=== PATIENT | male | born 1960 | race Caucasian/White ===

== ENCOUNTER 2016-09-27 15:14 | Inpatient (IN) | payer OTHER ==
[2016-09-27 16:05] VITALS: BMI 23.4
--- NOTE | 2016-09-27 17:29 | HP ---
COWS - Scale Resting Pulse: 0= [place] 80 or Below Sweatin= Chills/Flushing Restless Observation: 1= Difficult to Sit Still Pupil Size: 0= Normal to Room Light Bone or Joint Aches: 2= Severe Diffuse Aches Runny Nose/ Eye Tearin= Runny Nose/Eyes GI Upset > 30mins: 2= Nausea/Diarrhea Tremor Observation: 1= Tremor [place], Not Seen Yawning Observation: 1= 1-2x During Session Anxiety or Irritability: 2=Irritable/Anxious Goose Flesh Skin: 3=Piloerection COWS Score: 15 Admission ROS S - HPI Chief Complaint: 56 years old male with long history of opiate nicotine dependence, has + PPD hepatitis c and anxiety depression is admitted to detox Allergies/Adverse Reactions: Allergies Allergy/AdvReac Type Severity Reaction Status Date / Time penicillin G Allergy Severe Difficulty Verified 06/22/16 14:34 Breathing History of Present Illness: withdrawal sx Exam Limitations: No Limitations - Ebola screening Have you traveled outside of the country in the last 21 days: No Have you had contact with anyone from an Ebola affected area: No Have you been sick,other than usual withdrawal symptoms: No Do you have a fever: No - Review of Systems Constitutional: Chills, Loss of Appetite, Changes in sleep, Unexplained wgt Loss EENT: reports: No Symptoms Reported Respiratory: reports: No Symptoms reported Cardiac: reports: No Symptoms Reported GI: reports: Diarrhea, Poor Appetite, Poor Fluid Intake, Abdominal cramping : reports: No Symptoms Reported Musculoskeletal: reports: Back Pain, Joint Pain, Muscle Pain, Neck Pain Integumentary: reports: No Symptoms Reported Neuro: reports: Tremors Endocrine: reports: No Symptoms Reported Hematology: reports: No Symptoms Reported Psychiatric: reports: Judgement Intact, Orientated x3, Anxious, Depressed Other Systems: Reviewed and Negative Patient History - Patient Medical History Hx Anemia: No Hx Asthma: No Hx Chronic Obstructive Pulmonary Disease (COPD): No Hx Cancer: No Hx Cardiac Disorders: No Hx Congestive Heart Failure: No Hx Hypertension: No Hx Hypercholesterolemia: No Hx Pacemaker: No HX Cerebrovascular Accident: No Hx Seizures: No Hx Dementia: No Hx Diabetes: No Hx Gastrointestinal Disorders: Yes (gastritis) Hx Liver Disease: No Hx Genitourinary Disorders: No Hx Sexually Transmitted Disorders: No Hx Renal Disease (ESRD): No Hx Thyroid Disease: No Hx Human Immunodeficiency Virus (HIV): No Hx Hepatitis C: Yes Hx Depression: Yes Hx Suicide Attempt: Yes (1997) Hx Bipolar Disorder: No Hx Schizophrenia: No - Patient Surgical History Past Surgical History: Yes Hx Neurologic Surgery: No Hx Cataract Extraction: No Hx Cardiac Surgery: No Hx Lung Surgery: No Hx Breast Surgery: No Hx Breast Biopsy: No Hx Abdominal Surgery: No Hx Appendectomy: No Hx Cholecystectomy: No Hx Genitourinary Surgery: No Hx Orthopedic Surgery: Yes (left wrist in 1985) Anesthesia Reaction: No - PPD History Previous Implant?: Yes Documented Results: Positive w/o proof Implanted On Prior [facility] Admission?: No PPD to be Administered?: No - Smoking Cessation Smoking history: Current every day smoker Have you smoked in the past 12 months: Yes Aproximately how many cigarettes per day: 10 Cigars Per Day: 0 Hx Chewing Tobacco Use: No Initiated information on smoking cessation: Yes 'Breaking Loose' booklet given: 09/27/16 - Substance & Tx. History Hx Alcohol Use: No Hx Substance Use: Yes Substance Use Type: Opiates Hx Substance Use Treatment: Yes - Substances Abused Heroin Route: Inhalation Frequency: Daily Amount used: 5 bags Age of first use: 31 Date of Last Use: 09/27/16 Family Disease History - Family Disease History Family Disease History: Diabetes: Daughter, [place]: Mother () Admission Physical Exam S - Vital Signs Vital Signs: Vital Signs - 24 hr 09/27/16 16:01 Temperature 97.5 F L Pulse Rate 53 L Respiratory 18 Rate Blood Pressure 122/74 - Physical General Appearance: Yes: Appropriately Dressed, Mild Distress, Thin, Tremorous, Irritable, Sweating, Anxious HEENTM: Yes: Hearing grossly Normal, Normal ENT Inspection, Normocephalic, Normal Voice Respiratory: Yes: Chest Non-Tender, Lungs Clear, Normal Breath Sounds, No Respiratory Distress, No Accessory Muscle Use Neck: Yes: Supple, Trachea in good position Breast: Yes: Breasts Symetrical Cardiology: Yes: Regular Rhythm, Regular Rate, S1, S2 Abdominal: Yes: Non Tender, Soft Genitourinary: Yes: Within Normal Limits Back: Yes: Normal Inspection Musculoskeletal: Yes: full range of Motion, Gait Steady, Back pain, Muscle Pain Extremities: Yes: Normal Inspection, Normal Range of Motion, Non-Tender, Tremors Neurological: Yes: Fully Oriented, Alert, Motor Strength 5/5, Normal Response, Depressed Affect Integumentary: Yes: Warm Lymphatic: Yes: Within Normal Limits - Diagnostic (1) Nicotine dependence Current Visit: Yes Status: Acute Qualifiers: Nicotine product type: cigarettes Substance use status: in withdrawal Qualified Code(s): F17.213 - Nicotine dependence, cigarettes, with withdrawal (2) Opioid dependence with withdrawal Current Visit: Yes Status: Acute (3) Hepatitis C antibody test positive Current Visit: Yes Status: Resolved (4) Weight loss Current Visit: Yes Status: Acute Comment: ensure (5) GERD (gastroesophageal reflux disease) Current Visit: Yes Status: Acute Qualifiers: Esophagitis presence: without esophagitis Qualified Code(s): K21.9 - Gastro-esophageal reflux disease without esophagitis Comment: zantac (6) Positive PPD, treated Current Visit: Yes Status: Resolved Comment: chest x ray pending (7) Sciatic leg pain Current Visit: Yes Status: Acute Comment: left leg lidocaine patch neurontin (8) Fracture subluxation of left wrist Current Visit: Yes Status: Resolved Qualifiers: Encounter type: sequela Qualified Code(s): S62.102S - Fracture of unspecified carpal bone, left wrist, sequela (9) Sprain of part of left shoulder girdle Current Visit: Yes Status: Resolved Qualifiers: Encounter type: sequela Qualified Code(s): S43.92XS - Sprain of unspecified parts of left shoulder girdle, sequela Cleared for Admission [facility] - Detox or Rehab [facility] Level of Care: Medically Managed Detox Regimen/Protocol: Methadone [facility] Breath Alcohol Content Breath Alcohol Content: 0 Urine Drug Screen - Results Drug Screen Negative: No Urine Drug Screen Results: OPI-Opiates
[2016-09-27] MEDS ORDERED: guaiFENesin/D-METHORPHAN HB 10 ML UNIT-DOSE CUPS PO PRN (17:36)
[2016-09-27] MEDS ORDERED: MENTHOL/PHENOL 1 EACH UD MM PRN (17:36)
[2016-09-27] MEDS ORDERED: NICOTINE POLACRILEX 2 MG GUM BUC PRN (17:36)
[2016-09-27] MEDS ORDERED: MAGNESIUM CITRATE 300 ML BOTTLE PO PRN (17:36)
[2016-09-27] MEDS ORDERED: MAGNESIUM HYDROX 2400MG/30ML ORAL SUSPENSION 30 ML CUP PO PRN (17:36)
[2016-09-27] MEDS ORDERED: P-EPHED 60MG/TRIPROLIDI 2.5MG TABLET PO PRN (17:36)
[2016-09-27] MEDS ORDERED: LOPERAMIDE HCL 2 MG CAPSULE PO PRN (17:36)
[2016-09-27] MEDS ORDERED: MAG HYDROX/AL HYDROX/SIMETH 30 ML UNIT-DOSE CUP PO PRN (17:36)
[2016-09-27] MEDS ORDERED: METHADONE HCL 10 MG TABLET (FOR DETOX USE ONLY) PO ONE ×2 (19:00→23:00)
[2016-09-27] MEDS ORDERED: diphenhydrAMINE HCL 50 MG CAPSULE PO PRN (22:00)
[2016-09-27] MEDS: CYCLOBENZAPRINE HCL 10 MG TABLET (FP) PO SCH (22:23)
[2016-09-27] MEDS: THIAMINE HCL 100 MG TABLET (FP) PO SCH (22:23)
[2016-09-27] MEDS: RANITIDINE HCL 150 MG TABLET (FP) PO SCH (22:23)
[2016-09-27] MEDS: diazePAM 5 MG TABLET PO PRN (22:23)
[2016-09-27] MEDS: GABAPENTIN 300 MG CAPSULE (FP) PO SCH (22:23)
[2016-09-27 22:51] LABS: URINE APPEARANCE CLEAR; URINE BILIRUBIN NEGATIVE (NEGATIVE); URINE BLOOD NEGATIVE (NEGATIVE); URINE COLOR YELLOW; URINE GLUCOSE (UA) NEGATIVE (NEGATIVE); URINE KETONE NEGATIVE (NEGATIVE); URINE LEUK ESTERASE NEGATIVE (NEGATIVE); URINE NITRITE NEGATIVE (NEGATIVE); URINE PROTEIN NEGATIVE (NEGATIVE); URINE UROBILINOGEN 4.0 E.U/dl E.U./dl (0.2-1.0)
[2016-09-28] MEDS: CYCLOBENZAPRINE HCL 10 MG TABLET (FP) PO SCH ×3 (05:52→22:08)
--- NOTE | 2016-09-28 08:05 | CONSULT ---
[facility] Psychiatric Consult - Data Date of interview: 09/28/16 Admission source: [facility] Identifying data: This is 56 years old male with no mpsychiatric hospitalization history intoxicated with: Heroin, Cocaine, Benzodiazepins, Nicotine Substance Abuse History: - Smoking Cessation. Smoking history: Current every day smoker. Have you smoked in the past 12 months: Yes. Aproximately how many cigarettes per day: 10. Cigars Per Day: 0. Hx Chewing Tobacco Use: No. Initiated information on smoking cessation: Yes. 'Breaking Loose' booklet given : 09/27/16. - Substance & Tx. History. Hx Alcohol Use: No. Hx Substance Use: Yes. Substance Use Type: Opiates. Hx Substance Use Treatment: Yes. - Substances Abused. Heroin. Route: Inhalation. Frequency: Daily. Amount used: 5 bags. Age of first use: 31. Date of Last Use: 09/27/16 Medical History: GERD, Sciatica, Weight loss, HepC+, PPD positive history Psychiatric History: Patient reports history of anxiety and insomnia, reports taking prior to admission: Trazodone 50mg po qhs. Gabapentin 600mg po bid Physical/Sexual Abuse/Trauma History: Denies Additional Comment: Trazodone 50mg po qhs. Gabapentin 600mg po bid Mental Status Exam - Mental Status Exam Alert and Oriented to: Person Cognitive Function: Fair Patient Appearance: Unkempt Mood: Sad Affect: Flat Patient Behavior: Sedated Speech Pattern: Delayed Voice Loudness: Mildly Soft/Quiet Thought Process: Goal Oriented Thought Disorder: Being Controlled Hallucinations: Denies Suicidal Ideation: Denies Homicidal Ideation: Denies Insight/Judgement: Fair Sleep: Difficulty falling asleep Appetite: Weight loss Muscle strength/Tone: Mild Hypotonicity Gait/Station: Shuffling Additional Comments: Trazodone 50mg po qhs. Gabapentin 600mg po bid Psychiatric Findings - Problem List ([place] 1, 2,3) (1) Nicotine dependence Current Visit: Yes Status: Acute Qualifiers: Nicotine product type: cigarettes Substance use status: in withdrawal Qualified Code(s): F17.213 - Nicotine dependence, cigarettes, with withdrawal (2) Opioid dependence with withdrawal Current Visit: Yes Status: Acute (3) Weight loss Current Visit: Yes Status: Acute Comment: ensure (4) Benzodiazepine abuse Current Visit: No Status: Acute (5) Substance-induced sleep disorder Current Visit: No Status: Acute (6) Benzodiazepine dependence Current Visit: No Status: Chronic (7) Cocaine dependence Current Visit: No Status: Chronic Qualifiers: Substance use status: uncomplicated Qualified Code(s): F14.20 - Cocaine dependence, uncomplicated (8) Opioid dependence Current Visit: No Status: Chronic Qualifiers: Substance use status: uncomplicated Qualified Code(s): F11.20 - Opioid dependence, uncomplicated - Initial Treatment Plan Initial Treatment Plan: Trazodone 50mg po qhs. Gabapentin 600mg po bid
[2016-09-28] MEDS ORDERED: METHADONE HCL 10 MG TABLET (FOR DETOX USE ONLY) PO ONE (10:00)
[2016-09-28 10:14] LABS: MCH 31.5 pg (25.7-33.7); MCHC 33.1 g/dl (32.0-35.9); MEAN CELL VOLUME 95.3 fl (80-96); MEAN PLT VOLUME 8.5 fl (7.5-11.1); PLATELET COUNT 243 K/MM3 (134-434); RDW 14.3 % (11.9-15.9); WHITE BLOOD COUNT 9.1 K/mm3 (4.0-10.0)
[2016-09-28 10:20] LABS: ALBUMIN 3.4 g/dl (3.4-5.0); ANION GAP 6 (8-16); CALCIUM 9.5 mg/dL (8.5-10.1); CO2 29 mmol/L (21-32); GLUCOSE,RANDOM 98 mg/dL (74-106); SGPT/ALT 59 U/L (12-78)
[2016-09-28 10:21] LABS: ALK PHOS 80 U/L (45-117); BILIRUBIN,TOTAL 0.3 mg/dL (0.2-1.0); CREATININE 0.7 mg/dL (0.7-1.3); SGOT/AST 39 U/L (15-37); TOT PROT 6.5 g/dl (6.4-8.2)
[2016-09-28] MEDS: NICOTINE 14 MG/24 HOURS TOPICAL PATCH TD SCH (10:28)
[2016-09-28] MEDS: diazePAM 5 MG TABLET PO PRN ×2 (10:29→22:09)
[2016-09-28] MEDS: GABAPENTIN 300 MG CAPSULE (FP) PO SCH ×2 (10:29→22:09)
[2016-09-28] MEDS: RANITIDINE HCL 150 MG TABLET (FP) PO SCH ×2 (10:29→22:08)
[2016-09-28] MEDS: PRENATAL VITAMINS W/ FOLIC ACID TABLET (FP) PO SCH (10:29)
[2016-09-28 11:20] LABS: HIV 1 & 2 AB NEGATIVE; HIV 1 AGp24 NEGATIVE
--- NOTE | 2016-09-28 11:37 | PN ---
S COWS - Scale Resting Pulse: 1= [place] 81-100 Sweatin= Chills/Flushing Restless Observation: 1= Difficult to Sit Still Pupil Size: 0= Normal to Room Light Bone or Joint Aches: 2= Severe Diffuse Aches Runny Nose/ Eye Tearin= None GI Upset > 30mins: 3= Vomiting/Diarrhea Tremor Observation of Outstretched Hands: 2= Slight Tremor Visible Yawning Observation: 0= None Anxiety or Irritability: 1=Feels Anxious/Irritable Goose Flesh Skin: 3=Piloerection COWS Score: 14 [facility] Progress Note (SOAP) Subjective: Tremors, Interrupted sleep, Vomiting, Abdominal Cramping, Constipation, Body Aches. Objective: 09/28/16 11:35 Vital Signs Temperature 95.5 F L 09/28/16 09:35 Pulse Rate 96 H 09/28/16 09:35 Respiratory Rate 16 09/28/16 09:35 Blood Pressure 133/74 09/28/16 09:35 O2 Sat by Pulse Oximetry (%) Laboratory Last Values WBC 9.1 K/mm3 (4.0-10.0) 09/28/16 06:45 RBC 4.53 M/mm3 (4.00-5.60) 09/28/16 06:45 Hgb 14.3 GM/dL (11.7-16.9) 09/28/16 06:45 Hct 43.1 % (35.4-49) 09/28/16 06:45 MCV 95.3 fl (80-96) 09/28/16 06:45 MCHC 33.1 g/dl (32.0-35.9) 09/28/16 06:45 RDW 14.3 % (11.9-15.9) 09/28/16 06:45 Plt Count 243 K/MM3 (134-434) 09/28/16 06:45 MPV 8.5 fl (7.5-11.1) 09/28/16 06:45 Sodium 144 mmol/L (136-145) 09/28/16 06:45 Potassium 4.2 mmol/L (3.5-5.1) 09/28/16 06:45 Chloride 109 mmol/L (98-107) H 09/28/16 06:45 Carbon Dioxide 29 mmol/L (21-32) 09/28/16 06:45 Anion Gap 6 (8-16) L 09/28/16 06:45 BUN 18 mg/dL (7-18) D 09/28/16 06:45 Creatinine 0.7 mg/dL (0.7-1.3) 09/28/16 06:45 Creat Clearance w eGFR > 60 (>60) 09/28/16 06:45 Random Glucose 98 mg/dL (74-106) 09/28/16 06:45 Calcium 9.5 mg/dL (8.5-10.1) 09/28/16 06:45 Total Bilirubin 0.3 mg/dL (0.2-1.0) D 09/28/16 06:45 AST 39 U/L (15-37) H 09/28/16 06:45 ALT 59 U/L (12-78) 09/28/16 06:45 Alkaline Phosphatase 80 U/L (45-117) 09/28/16 06:45 Total Protein 6.5 g/dl (6.4-8.2) 09/28/16 06:45 Albumin 3.4 g/dl (3.4-5.0) 09/28/16 06:45 Urine Color Yellow 09/27/16 22:40 Urine Appearance Clear 09/27/16 22:40 Urine pH 6.0 (5.0-8.0) 09/27/16 22:40 Ur Specific [place] 1.025 (1.001-1.035) 09/27/16 22:40 Urine Protein Negative (NEGATIVE) 09/27/16 22:40 Urine Glucose (UA) Negative (NEGATIVE) 09/27/16 22:40 Urine Ketones Negative (NEGATIVE) 09/27/16 22:40 Urine Blood Negative (NEGATIVE) 09/27/16 22:40 Urine Nitrite Negative (NEGATIVE) 09/27/16 22:40 Urine Bilirubin Negative (NEGATIVE) 09/27/16 22:40 Urine Urobilinogen 4.0 e.u/dl E.U./dl (0.2-1.0) 09/27/16 22:40 Ur Leukocyte Esterase Negative (NEGATIVE) 09/27/16 22:40 RPR Titer Nonreactive (NONREACTIVE) 09/28/16 06:45 HIV 1&2 Antibody Screen Negative 09/28/16 06:45 HIV P24 Antigen Negative 09/28/16 06:45 LABS NOTED. Assessment: 09/28/16 11:36 WITHDRAWAL SYMPTOMS. Plan: CONTINUE DETOX. INCREASE PO FLUIDS. PRN MILK OF MAGNESIA FOR CONSTIPATION.
[2016-09-28] MEDS ORDERED: INFLUENZA VACCINE 45 MCG/0.5 ML (MDV 16-17) IM ONE (12:00)
[2016-09-28] MEDS: LIDOCAINE 5% TOPICAL PATCH TP SCH (13:31)
--- NOTE | 2016-09-28 17:36 | EKG ---
Test Reason : Blood Pressure : / mmHG Vent. Rate : 051 BPM Atrial Rate : 051 BPM P-R Int : 156 ms QRS Dur : 082 ms QT Int : 440 ms P-R-T Axes : 053 034 032 degrees QTc Int : 405 ms SINUS BRADYCARDIA POSSIBLE LEFT ATRIAL ENLARGEMENT BORDERLINE ECG NO PREVIOUS ECGS AVAILABLE Confirmed by MIGUELITO NINA MD ([id number]) on 09/28/2016 5:36:08 PM Referred By: Bruce Myers Confirmed By:MIGUELITO NINA MD
[2016-09-28] MEDS: THIAMINE HCL 100 MG TABLET (FP) PO SCH (22:08)
[2016-09-28] MEDS: traZODone HCL 50 MG TABLET (FP) PO SCH (22:08)
[2016-09-29] MEDS: CYCLOBENZAPRINE HCL 10 MG TABLET (FP) PO SCH ×3 (05:40→22:08)
[2016-09-29] MEDS: diazePAM 5 MG TABLET PO PRN ×3 (05:42→22:07)
--- NOTE | 2016-09-29 09:43 | PN ---
S COWS - Scale Resting Pulse: 0= [place] 80 or Below Sweatin=Flushed/Facial Moisture Restless Observation: 1= Difficult to Sit Still Pupil Size: 2= Moderately Dilated Bone or Joint Aches: 2= Severe Diffuse Aches Runny Nose/ Eye Tearin= Runny Nose/Eyes GI Upset > 30mins: 3= Vomiting/Diarrhea Tremor Observation of Outstretched Hands: 2= Slight Tremor Visible Yawning Observation: 0= None Anxiety or Irritability: 2=Irritable/Anxious Goose Flesh Skin: 0=Smooth Skin COWS Score: 16 [facility] Progress Note (SOAP) Objective: 09/29/16 09:43 Laboratory Tests 09/27/16 09/28/16 09/28/16 22:40 06:45 06:45 WBC 9.1 RBC 4.53 Hgb 14.3 Hct 43.1 MCV 95.3 MCHC 33.1 RDW 14.3 Plt Count 243 MPV 8.5 Sodium 144 Potassium 4.2 Chloride 109 H Carbon Dioxide 29 Anion Gap 6 L BUN 18 D Creatinine 0.7 Creat Clearance w eGFR > 60 Random Glucose 98 Calcium 9.5 Total Bilirubin 0.3 D AST 39 H ALT 59 Alkaline Phosphatase 80 Total Protein 6.5 Albumin 3.4 Urine Color Yellow Urine Appearance Clear Urine pH 6.0 Ur Specific Black 1.025 Urine Protein Negative Urine Glucose (UA) Negative Urine Ketones Negative Urine Blood Negative Urine Nitrite Negative Urine Bilirubin Negative Urine Urobilinogen 4.0 e.u/dl Ur Leukocyte Esterase Negative RPR Titer HIV 1&2 Antibody Screen HIV P24 Antigen 09/28/16 09/28/16 06:45 06:45 WBC RBC Hgb Hct MCV MCHC RDW Plt Count MPV Sodium Potassium Chloride Carbon Dioxide Anion Gap BUN Creatinine Creat Clearance w eGFR Random Glucose Calcium Total Bilirubin AST ALT Alkaline Phosphatase Total Protein Albumin Urine Color Urine Appearance Urine pH Ur Specific Black Urine Protein Urine Glucose (UA) Urine Ketones Urine Blood Urine Nitrite Urine Bilirubin Urine Urobilinogen Ur Leukocyte Esterase RPR Titer Nonreactive HIV 1&2 Antibody Screen Negative HIV P24 Antigen Negative Vital Signs - 24 hr 09/28/16 09/28/16 09/28/16 14:58 20:23 21:59 Temperature 96.8 F L 97.9 F 97.9 F Pulse Rate 54 L 56 L 67 Respiratory 18 16 18 Rate Blood Pressure 118/74 114/69 126/73 09/29/16 09/29/16 09/29/16 00:30 03:30 06:00 Temperature 97.7 F Pulse Rate 49 L Respiratory 16 18 18 Rate Blood Pressure 124/63 Assessment: 09/29/16 09:43 ongoing withdrawal Plan: continue detox protocol
[2016-09-29] MEDS ORDERED: METHADONE HCL 5 MG TABLET (FOR DETOX USE ONLY) PO ONE (10:00)
[2016-09-29] MEDS: LIDOCAINE 5% TOPICAL PATCH TP SCH (10:30)
[2016-09-29] MEDS: PRENATAL VITAMINS W/ FOLIC ACID TABLET (FP) PO SCH (10:31)
[2016-09-29] MEDS: RANITIDINE HCL 150 MG TABLET (FP) PO SCH ×2 (10:31→22:08)
[2016-09-29] MEDS: GABAPENTIN 300 MG CAPSULE (FP) PO SCH ×2 (10:31→22:07)
[2016-09-29] MEDS: NICOTINE 14 MG/24 HOURS TOPICAL PATCH TD SCH (10:31)
[2016-09-29] MEDS: traZODone HCL 50 MG TABLET (FP) PO SCH (22:08)
[2016-09-29] MEDS: THIAMINE HCL 100 MG TABLET (FP) PO SCH (22:08)
[2016-09-30] MEDS: CYCLOBENZAPRINE HCL 10 MG TABLET (FP) PO SCH ×3 (05:53→22:11)
[2016-09-30] MEDS: diazePAM 5 MG TABLET PO PRN (05:53)
[2016-09-30] MEDS ORDERED: METHADONE HCL 5 MG TABLET (FOR DETOX USE ONLY) PO ONE (10:00)
[2016-09-30] MEDS: GABAPENTIN 300 MG CAPSULE (FP) PO SCH ×2 (10:06→22:10)
[2016-09-30] MEDS: PRENATAL VITAMINS W/ FOLIC ACID TABLET (FP) PO SCH (10:06)
[2016-09-30] MEDS: RANITIDINE HCL 150 MG TABLET (FP) PO SCH ×2 (10:06→22:11)
[2016-09-30] MEDS: LIDOCAINE 5% TOPICAL PATCH TP SCH (10:10)
[2016-09-30] MEDS: NICOTINE 14 MG/24 HOURS TOPICAL PATCH TD SCH (10:10)
--- NOTE | 2016-09-30 13:05 | PN ---
[facility] Progress Note (SOAP) Subjective: ALERT,IRRITABLE,ANXIOUS,INTERRUPTED SLEEP,PAIN IN THE BODY Objective: Vital Signs Temperature 97 F L 09/30/16 10:04 Pulse Rate 76 09/30/16 10:04 Respiratory Rate 18 09/30/16 10:04 Blood Pressure 127/87 09/30/16 10:04 O2 Sat by Pulse Oximetry (%) Assessment: 09/30/16 13:04 WITHDRAWAL SYMPTOM Plan: CONTINUE DETOX
[2016-09-30] MEDS: ACETAMINOPHEN 325 MG TABLET (FP) PO PRN (19:56)
[2016-09-30] MEDS: THIAMINE HCL 100 MG TABLET (FP) PO SCH (22:10)
[2016-09-30] MEDS: traZODone HCL 50 MG TABLET (FP) PO SCH (22:10)
[2016-10-01] MEDS: ACETAMINOPHEN 325 MG TABLET (FP) PO PRN ×2 (04:37→12:20)
[2016-10-01] MEDS: CYCLOBENZAPRINE HCL 10 MG TABLET (FP) PO SCH ×3 (07:24→22:23)
[2016-10-01] MEDS ORDERED: METHADONE HCL 10 MG TABLET (FOR DETOX USE ONLY) PO ONE (10:00)
[2016-10-01] MEDS: RANITIDINE HCL 150 MG TABLET (FP) PO SCH ×2 (10:08→22:23)
[2016-10-01] MEDS: GABAPENTIN 300 MG CAPSULE (FP) PO SCH ×2 (10:08→22:22)
[2016-10-01] MEDS: PRENATAL VITAMINS W/ FOLIC ACID TABLET (FP) PO SCH (10:08)
[2016-10-01] MEDS: NICOTINE 14 MG/24 HOURS TOPICAL PATCH TD SCH (10:08)
[2016-10-01] MEDS: LIDOCAINE 5% TOPICAL PATCH TP SCH (10:08)
--- NOTE | 2016-10-01 11:58 | PN ---
S Progress Note (SOAP) Subjective: ALERT,INTERRUPTED SLEEP,ANXIOUS Objective: 10/01/16 11:57 Vital Signs Temperature 97.5 F L 10/01/16 11:01 Pulse Rate 75 10/01/16 11:01 Respiratory Rate 16 10/01/16 11:01 Blood Pressure 105/77 10/01/16 11:01 O2 Sat by Pulse Oximetry (%) Assessment: 10/01/16 11:57 WITHDRAWAL SYMPTOM Plan: CONTINUE DETOX,DISCHARGE IN AM
[2016-10-01] MEDS ORDERED: LIDOCAINE VISCOUS 2% ORAL/TOP 20 ML UNIT-DOSE CUP MM PRN (12:21)
[2016-10-01] MEDS: THIAMINE HCL 100 MG TABLET (FP) PO SCH (22:22)
[2016-10-01] MEDS: traZODone HCL 50 MG TABLET (FP) PO SCH (22:23)
[2016-10-02] MEDS: ACETAMINOPHEN 325 MG TABLET (FP) PO PRN (00:51)
[2016-10-02] MEDS: CYCLOBENZAPRINE HCL 10 MG TABLET (FP) PO SCH (05:46)
[2016-10-02] MEDS ORDERED: METHADONE HCL 5 MG TABLET (FOR DETOX USE ONLY) PO ONE (06:00)
[2016-10-02 06:49] VITALS: BP 123/66; PULSE 62; TEMP 96.8
--- NOTE | 2016-10-02 08:53 | DS ---
[facility] Detox Discharge Summary Admission Date: 09/27/16 Discharge Date: 10/02/16 - History Present History: Cocaine Dependence, Opioid Dependence, Sedative Dependence - Physical Exam Results Vital Signs: Vital Signs Temperature 96.8 F L 10/02/16 06:00 Pulse Rate 62 10/02/16 06:00 Respiratory Rate 18 10/02/16 06:00 Blood Pressure 123/66 10/02/16 06:00 O2 Sat by Pulse Oximetry (%) - Treatment Hospital Course: Detox Protocol Followed, Detoxed Safely, Responded well, Discharged Condition Good, Rehab Referral Accepted - Medication Discharge Medications: Ambulatory Orders Gabapentin [Neurontin] 600 mg PO BID 06/22/16 Trazodone HCl [Desyrel -] 50 mg PO HS 09/27/16 Trazodone HCl [Desyrel -] 50 mg PO HS #30 tablet 09/28/16 - Diagnosis (1) GERD (gastroesophageal reflux disease) Current Visit: Yes Status: Chronic Qualifiers: Esophagitis presence: without esophagitis Qualified Code(s): K21.9 - Gastro-esophageal reflux disease without esophagitis (2) Nicotine dependence Current Visit: Yes Status: Chronic Qualifiers: Nicotine product type: cigarettes Substance use status: in withdrawal Qualified Code(s): F17.213 - Nicotine dependence, cigarettes, with withdrawal (3) Opioid dependence with withdrawal Current Visit: Yes Status: Chronic (4) Sciatic leg pain Current Visit: Yes Status: Chronic (5) Weight loss Current Visit: Yes Status: Acute (6) Fracture subluxation of left wrist Current Visit: Yes Status: Resolved Qualifiers: Encounter type: sequela Qualified Code(s): S62.102S - Fracture of unspecified carpal bone, left wrist, sequela (7) Hepatitis C antibody test positive Current Visit: Yes Status: Resolved (8) Positive PPD, treated Current Visit: Yes Status: Resolved (9) Sprain of part of left shoulder girdle Current Visit: Yes Status: Resolved Qualifiers: Encounter type: sequela Qualified Code(s): S43.92XS - Sprain of unspecified parts of left shoulder girdle, sequela (10) Substance-induced sleep disorder Current Visit: No Status: Acute (11) Benzodiazepine dependence Current Visit: Yes Status: Chronic (12) Cocaine dependence Current Visit: Yes Status: Chronic Qualifiers: Substance use status: uncomplicated Qualified Code(s): F14.20 - Cocaine dependence, uncomplicated (13) Opioid dependence Current Visit: Yes Status: Chronic Qualifiers: Substance use status: uncomplicated Qualified Code(s): F11.20 - Opioid dependence, uncomplicated - AMA Did Patient Leave Against Medical Advice: No
== END 2016-10-02 09:38 | disposition home or self-care (01) | DRG 773 ==
LOC: YASAS 15:14 → Y6N 18:33
PROVIDERS: ADMIT Internal Medicine Addiction Medicine; ATTEND Internal Medicine Addiction Medicine
PROC: HZ2ZZZZ Detoxification Services for Substance Abuse Treatment (ICD-10-PCS; principal; 2016-10-02)
DX: F11.23 Opioid dependence with withdrawal (principal); F13.20 Sedative, hypnotic or anxiolytic dependence, uncomplicated; F14.20 Cocaine dependence, uncomplicated; F17.210 Nicotine dependence, cigarettes, uncomplicated; F19.282 Other psychoactive substance dependence with psychoactive substance-induced sleep disorder; K21.9 Gastro-esophageal reflux disease without esophagitis; R63.4 Abnormal weight loss; Z68.23 Body mass index [BMI] 23.0-23.9, adult; R76.11 Nonspecific reaction to tuberculin skin test without active tuberculosis
CPT/HCPCS: 36415; 80053; 81003; 85027; 86593; 87389; 93005; 93010